=== PATIENT | male | born 1985 | race African-American/Black ===

== ENCOUNTER 2020-07-30 19:44 | Emergency (ER) | payer OTHER ==
[2020-07-30 20:11] VITALS: BP 152/90; BMI 36.2
[2020-07-30] MEDS ORDERED: IBUPROFEN 600 MG TABLET (FP) PO ONE ×2 (21:44→21:57)
[2020-07-30] MEDS ORDERED: AMOX TR/POT CLAV 875MG/125MG TABLETS (FP) PO ONE (21:44)
[2020-07-30] MEDS ORDERED: ACETAMINOPHEN 325 MG TABLET (FP) PO ONE (21:44)
[2020-07-30] MEDS ORDERED: AMOX TR/POT CLAV 875MG/125MG TABLETS (FP) ONE (21:57)
[2020-07-30] MEDS ORDERED: ACETAMINOPHEN 325 MG TABLET (FP) ONE (21:57)
[2020-07-30 22:06] VITALS: PULSE 95; TEMP 100
== END 2020-07-30 22:06 | disposition home or self-care (01) ==
LOC: JER 19:44
DX: K04.7 Periapical abscess without sinus (principal)
CPT/HCPCS: 99283-25

== ENCOUNTER 2021-04-25 17:22 | Emergency (ER) | payer OTHER ==
[2021-04-25 17:31] VITALS: BP 160/78; PULSE 97; TEMP 98; BMI 36.2
== END 2021-04-25 18:46 | disposition home or self-care (01) ==
LOC: JERFT 17:22
DX: H10.31 Unspecified acute conjunctivitis, right eye (principal)
CPT/HCPCS: 99283-25